=== PATIENT | male | born 1960 | race African-American/Black ===

== ENCOUNTER 2017-01-10 17:31 | Inpatient (IN) | payer OTHER ==
[~2017-01-10] VITALS: Ht 180.3 cm; Wt 85.0 kg
[2017-01-10 19:02] LABS: BASOPHIL % 0.3 % (0-2); PLATELET COUNT 147 x10^3mcL (130-400)
[2017-01-10 19:07] LABS: CALCIUM 8.1 mg/dL (8.5-10.1); CARBON DIOXIDE 24.3 mmol/L (21-32)
[2017-01-10 19:08] LABS: RED CELL DISTRIBUTION WIDTH 17.5 % (11.5-14.5)
[2017-01-10 19:09] LABS: BILIRUBIN TOTAL 0.4 mg/dL (0.20-1.00); TOTAL PROTEIN, SERUM 7.3 g/dL (6.4-8.2)
[2017-01-10 19:11] LABS: ALBUMIN 2.9 g/dL (3.4-5.0)
[2017-01-10 19:39] LABS: rbc morphology (normal/abnorm) NORMAL (NORMAL)
[2017-01-10] MEDS ORDERED: GOOD SENSE OMEP20 MG (20:15)
[2017-01-10] MEDS ORDERED: TYLENOL (20:15)
[2017-01-10] MEDS ORDERED: ENFAMIL D-V400 IU/ML (20:16)
[2017-01-10] MEDS ORDERED: TAMSULOSIN HYD0.4 M1 (20:16)
[2017-01-10] MEDS ORDERED: NATURAL IRON65 MG (20:16)
[2017-01-10] MEDS ORDERED: SUPREP BOWEL P177 ML (20:16)
[2017-01-10] MEDS ORDERED: [UNRECOGNIZED DRUG - OTHER] (20:16)
[2017-01-10] MEDS ORDERED: CASODEX50 MG (20:16)
[2017-01-10] MEDS ORDERED: PHOSLO667 MG (20:16)
[2017-01-10 21:03] VITALS: BP 105/56
[2017-01-10 23:10] VITALS: BP 94/62
[2017-01-10 23:44] VITALS: BP 96/57
[2017-01-11] VITALS (15 sets, daily range): BP systolic 98–132; BP diastolic 54–92
[2017-01-11 04:17] LABS: UA SPECIFIC GRAVITY 1.025 (1.005-1.035); microscopic required? YES; urine erythrocyte 2+ (NEGATIVE)
[2017-01-11 13:16] LABS: BASOPHIL % 0.2 % (0-2)
[2017-01-11 13:20] LABS: PLATELET COUNT 112 x10^3mcL (130-400); RED CELL DISTRIBUTION WIDTH 15.1 % (11.5-14.5)
[2017-01-11 15:53] LABS: CALCIUM 7.5 mg/dL (8.5-10.1); CARBON DIOXIDE 23.3 mmol/L (21-32); CREATININE SERUM 2.8 mg/dL (0.7-1.3); POTASSIUM SERUM 5.3 mmol/L (3.5-5.1)
[2017-01-12] VITALS (10 sets, daily range): BP systolic 116–152; BP diastolic 70–97
[2017-01-12 09:52] LABS: BASOPHIL % 0.3 % (0-2)
[2017-01-12 09:54] LABS: PLATELET COUNT 94 x10^3mcL (130-400); RED CELL DISTRIBUTION WIDTH 15.3 % (11.5-14.5)
[2017-01-13 06:09] VITALS: BP 130/82
[2017-01-13 08:05] LABS: CALCIUM 7.8 mg/dL (8.5-10.1); CARBON DIOXIDE 21.5 mmol/L (21-32); CREATININE SERUM 1.7 mg/dL (0.7-1.3); POTASSIUM SERUM 3.7 mmol/L (3.5-5.1)
[2017-01-13 08:06] LABS: PLATELET COUNT 96 x10^3mcL (130-400); RED CELL DISTRIBUTION WIDTH 15.3 % (11.5-14.5)
[2017-01-13 09:20] VITALS: BP 127/82
[2017-01-13 10:21] LABS: BAND NEUTROPHIL 26 % (0-10); BASOPHIL 0 % (0-2); METAMYELOCTE 1 % (0-2); MONOCYTE 7 % (0-7); MYELOCYTE 3 % (0-2); SEGMENTED NEUTROPHILS 48 % (37-75)
[2017-01-13 10:22] LABS: rbc morphology (normal/abnorm) ABNORMAL (NORMAL)
[2017-01-13 10:25] LABS: ovalocyte/elliptocyte 1+
[2017-01-13 11:56] VITALS: Ht 180.3 cm; Wt 85.0 kg
[2017-01-13 12:45] VITALS: BP 131/86
[2017-01-13 17:50] VITALS: BP 120/78
[2017-01-13 20:37] VITALS: BP 125/78
[2017-01-13 21:06] LABS: rbc morphology (normal/abnorm) ABNORMAL (NORMAL)
[2017-01-14 06:45] VITALS: BP 123/82
[2017-01-14 09:11] LABS: BASOPHIL % 0.2 % (0-2)
[2017-01-14 09:22] LABS: CALCIUM 8.3 mg/dL (8.5-10.1); CARBON DIOXIDE 22.6 mmol/L (21-32); CREATININE SERUM 1.6 mg/dL (0.7-1.3); POTASSIUM SERUM 3.4 mmol/L (3.5-5.1)
[2017-01-14 10:07] LABS: PLATELET COUNT 92 x10^3mcL (130-400); RED CELL DISTRIBUTION WIDTH 15.1 % (11.5-14.5)
[2017-01-14 14:51] VITALS: BP 130/86
[2017-01-14 17:47] VITALS: BP 133/83
[2017-01-14 20:52] VITALS: BP 133/96
[2017-01-15 05:23] VITALS: BP 137/88
[2017-01-15 06:30] LABS: CALCIUM 8.2 mg/dL (8.5-10.1); CARBON DIOXIDE 22.2 mmol/L (21-32); CREATININE SERUM 1.4 mg/dL (0.7-1.3); POTASSIUM SERUM 3.4 mmol/L (3.5-5.1)
[2017-01-15 06:47] LABS: BASOPHIL % 0 % (0-2); PLATELET COUNT 98 x10^3mcL (130-400)
[2017-01-15 09:53] VITALS: BP 131/84
[2017-01-15 13:06] VITALS: BP 144/91
[2017-01-15 17:35] VITALS: BP 144/97
[2017-01-15 21:19] VITALS: BP 157/96
[2017-01-15 22:10] VITALS: BP 154/98
[2017-01-16 06:32] LABS: CALCIUM 8.3 mg/dL (8.5-10.1); CARBON DIOXIDE 22.7 mmol/L (21-32); CREATININE SERUM 1.4 mg/dL (0.7-1.3); POTASSIUM SERUM 3.3 mmol/L (3.5-5.1)
[2017-01-16 06:44] VITALS: BP 151/89
[2017-01-16 07:03] LABS: PLATELET COUNT 99 x10^3mcL (130-400); RED CELL DISTRIBUTION WIDTH 15.1 % (11.5-14.5)
[2017-01-16 09:32] VITALS: BP 136/88
[2017-01-16] MEDS ORDERED: FENTANYL TOP (11:23)
[2017-01-16 11:26] LABS: ATYPICAL LYMPH 4 %; BAND NEUTROPHIL 32 % (0-10); BASOPHIL 0 % (0-2); METAMYELOCTE 2 % (0-2); MONOCYTE 4 % (0-7); SEGMENTED NEUTROPHILS 38 % (37-75); rbc morphology (normal/abnorm) ABNORMAL (NORMAL)
[2017-01-16 11:27] LABS: PLATELET MORPHOLOGY PLATELETS DECREASED
[2017-01-16 11:58] VITALS: BP 136/88
[2017-01-16 13:01] VITALS: BP 137/86
== END 2017-01-16 17:33 | disposition other institution (70) | DRG 378 ==
LOC: ED 17:31 → DU 19:51
PROVIDERS: Emergency Medicine; Internal Medicine Gastroenterology; ADMIT Internal Medicine
PROC: 0DB68ZX Excision of Stomach, Via Natural or Artificial Opening Endoscopic, Diagnostic (ICD-10-PCS; principal; 2017-01-11 09:30)
PROC: 30233N1 Transfusion of Nonautologous Red Blood Cells into Peripheral Vein, Percutaneous Approach (ICD-10-PCS; 2017-01-11 09:30)
DX: K92.0 Hematemesis (principal); N17.9 Acute kidney failure, unspecified; F14.10 Cocaine abuse, uncomplicated; Z93.6 Other artificial openings of urinary tract status; F17.210 Nicotine dependence, cigarettes, uncomplicated; Z85.46 Personal history of malignant neoplasm of prostate; D64.9 Anemia, unspecified; K27.9 Peptic ulcer, site unspecified, unspecified as acute or chronic, without hemorrhage or perforation; N18.9 Chronic kidney disease, unspecified; C61 Malignant neoplasm of prostate
CPT/HCPCS: 43235; 82962; 83880; C9113; J0171; J0696; J1200; J1610; J2250; J2270; J2310; J2354; J2405; J3010; J3430; J3490; J7030; J7040; J7050; J8999; P9016; Q0092; Q0163